=== PATIENT | male | born 1940 | race Caucasian/White ===

== ENCOUNTER 2016-09-17 20:13 | Emergency (ER) | payer MEDICARE ==
[~2016-09-17] VITALS: Ht 176.5 cm; Wt 80.0 kg
[~2016-09-17 20:13] MED LIST: CLOP75; ECOT81TA2; ROSU10; VASO10TA8
[2016-09-17 20:14] VITALS: BP 151/78; PULSE 77; RESP 18; TEMP 100.1; O2SAT 95
[2016-09-17] MEDS ORDERED: ACETAMINOPHEN 325 MG TAB PO ONE (20:30)
--- NOTE | 2016-09-17 20:33 | PD ---
HPI Chief Complaint: Cold / Flu Symptoms Time Seen by Provider: 20:20 Travel History International Travel<30 days: No Contact w/Intl Traveler<30days: No Traveled to known affect area: No History of Present Illness HPI 75-year-old male complains of headache, chills, productive cough. Patient states that symptoms started 2 days ago. Patient states that the headache is mild aching headache diffuse over the head. Patient denies any visual change. Patient denies any neck pain. Patient denies earache sore throat. Patient states the cough is persistent and nonproductive. Patient denies any chest pain or shortness of breath. Patient denies abdominal pain. Patient denies any nausea vomiting diarrhea. Patient took Tylenol this morning. PFSH Past Medical History Arthritis: No Asthma: No Autoimmune Disease: No Blood Disorders: No Heart Rhythm Problems: No Cancer: No Cardiovascular Problems: Yes (3 stents ) High Cholesterol: No Chemotherapy: No Chest Pain: No Congestive Heart Failure: No COPD: No Cerebrovascular Accident: No Diabetes: Yes (Type 2) Endocrine: No Gastrointestinal Disorders: Yes (ABDOMINAL PAIN ASSOCIATED W/ LOTS OF GAS ( FLATUS).) GERD: No Glaucoma: No Genitourinary: No Headaches: No Hepatitis: No Hiatal Hernia: No Hypertension: Yes Immune Disorder: No Kidney Stones: No Musculoskeletal: Yes Neurologic: No Psychiatric: No Respiratory: No Myocardial Infarction: No Radiation Therapy: No Renal Failure: No Seizures: No Sickle Cell Disease: No Sleep Apnea: No Thyroid Disease: No Ulcer: Yes Past Surgical History Abdominal Surgery: No AICD: No Cardiac Surgery: Yes (CARDIAC CATHERIZATIONS IN 2000) Ear Surgery: No Endocrine Surgery: No Eye Surgery: No Genitourinary Surgery: No Gynecologic Surgery: No Joint Replacement: No Oral Surgery: No Pacemaker: No Thoracic Surgery: No Other Surgery: Yes Social History Alcohol Use: Yes (WINE, VODKA 2XWK) Tobacco Use: No Substance Use: No Allergies-Medications (Allergen,Severity, Reaction): Coded Allergies: No Known Allergies (Verified , 09/17/16) Reported Meds & Prescriptions Reported Meds & Active Scripts Active Reported Metformin ER (Metformin HCl) 500 Mg Tab 500 Mg PO HS Zetia (Ezetimibe) 10 Mg Tab 10 Mg PO DAILY Effient (Prasugrel) 10 Mg Tab 10 Mg PO DAILY Januvia (Sitagliptin Phosphate) 50 Mg Tab 50 Mg PO DAILY Prilosec (Omeprazole) 20 Mg Cap 20 Mg PO DAILY Crestor (Rosuvastatin Calcium) 40 Mg Tab 40 Mg PO DAILY Vasotec (Enalapril Maleate) 10 Mg Tab 10 Mg PO BID Aspirin 81 Mg Chew 81 Mg CHEW DAILY Review of Systems General / Constitutional: Positive: Chills, No: Fever Eyes: No: Visual changes HENT: Positive: Headaches Cardiovascular: No: Chest Pain or Discomfort Respiratory: Positive: Cough, No: Shortness of Breath Gastrointestinal: No: Abdominal Pain Genitourinary: No: Dysuria Musculoskeletal: No: Pain Skin: No Rash Neurologic: No: Weakness Psychiatric: No: Depression Endocrine: No: Polydipsia Hematologic/Lymphatic: No: Easy Bruising Physical Exam Narrative GENERAL: Well-nourished, well-developed patient. SKIN: Warm and dry. HEAD: Normocephalic. EYES: No scleral icterus. No injection or drainage. NECK: Supple, trachea midline. No JVD or lymphadenopathy. CARDIOVASCULAR: Regular rate and rhythm without murmurs, gallops, or rubs. RESPIRATORY: Breath sounds equal bilaterally. No accessory muscle use. GASTROINTESTINAL: Abdomen soft, non-tender, nondistended. MUSCULOSKELETAL: No cyanosis, or edema. BACK: Nontender without obvious deformity. No CVA tenderness. Neurologic exam: Patient's awake and alert oriented 3. No obvious focal neurological deficit. Data Data Last Documented VS Vital Signs Date Time Temp Pulse Resp B/P Pulse Ox O2 Delivery O2 Flow Rate FiO2 09/17/16 20:14 100.1 77 18 151/78 95 Orders Influenzae A/B Antigen (09/17/16 20:27) Chest, Single Ap (09/17/16 20:27) Acetaminophen (Tylenol) (09/17/16 20:30) Ceftriaxone Inj (Rocephin Inj) (09/17/16 21:00) Lidocaine Pf 1% Inj (Xylocaine-Mpf 1% In (09/17/16 21:00) Azithromycin (Zithromax) (09/17/16 21:00) MDM Medical Decision Making Medical Screen Exam Complete: Yes Emergency Medical Condition: Yes Interpretation(s) Last Impressions Chest X-Ray 09/17/162026 Signed Impressions: Service Date/Time: Saturday, September 17, 2016 20:29 - CONCLUSION: Abnormal opacity at the right lung base given the clinical history likely related to a pneumonia however followup radiographs are recommended after appropriate clinical therapy in 4-8 weeks to ensure complete resolution. Jhon Ackerman MD Differential Diagnosis Differential diagnosis including viral syndrome, bronchitis, pneumonia, sepsis. Narrative Course 75-year-old male with headache, cough, chills. Rocephin 1 g IM. Zithromax 500 mg by mouth. Diagnosis Primary Impression: Pneumonia Qualified Code: J18.1 - Pneumonia of right lower lobe due to infectious organism Patient Instructions: General Instructions Additional Instructions: Levaquin as directed. Tessalon Perles for cough. Tylenol for fever. Follow- up with personal physician. Return if no improvement in 2 days of worsening of condition. Med/Other Pt SpecificInfo: Prescription(s) given Scripts Benzonatate (Tessalon Perles)100 Mg [id number] Mg PO TID PRN (COUGH) #30 CAP Ref 0 Prov:Harpreet Robbins MD 09/17/16 Levofloxacin (Levaquin)750 Mg [id number] Mg PO DAILY #10 TAB Ref 0 Prov:Harpreet Robbins MD 09/17/16 Disposition: 01 DISCHARGE HOME Condition: Stable Harpreet Robbins MD Sep 17, 2016 20:33
--- NOTE | 2016-09-17 20:41 | RADHPO ---
EXAM DATE/TIME: 09/17/2016 20:29 [facility] COMPARISON: No previous studies available for comparison. INDICATIONS : Fever, cough, and congestion for three days. MEDICAL HISTORY : None. SURGICAL HISTORY : Cardiac stents. ENCOUNTER: Initial ACUITY: 3 days PAIN SCORE: 2/10 LOCATION: Bilateral chest FINDINGS: The left lung is clear. Heart size normal. There is abnormal opacity in right lung base and overlying the right hilum. It is partially nodular in appearance up to 2.8 cm. The right lower lobe mass versu s consolidation can have this appearance. Aortic calcification is noted. Osseous structures are intac t. CONCLUSION: Abnormal opacity at the right lung base given the clinical history likely related to a pneumonia jain laura followup radiographs are recommended after appropriate clinical therapy in 4-8 weeks to ensure co mplete resolution. Jhon Ackerman MD on September 17, 2016 at 20:38 Board Certified Radiologist. This report was verified electronically.
[2016-09-17] MEDS ORDERED: SITA50 PO (20:46)
[2016-09-17] MEDS ORDERED: METF-381 PO (20:46)
[2016-09-17] MEDS ORDERED: ZETI10TA5 PO (20:46)
[2016-09-17] MEDS ORDERED: PRIL20CA9 PO (20:46)
[2016-09-17] MEDS ORDERED: VASO10TA8 PO (20:46)
[2016-09-17] MEDS ORDERED: PRAS10TA PO (20:46)
[2016-09-17] MEDS ORDERED: ASPI81CH CHEW (20:46)
[2016-09-17] MEDS ORDERED: ROSU40 PO (20:46)
[2016-09-17] MEDS ORDERED: BENZ100 PO (20:52)
[2016-09-17] MEDS ORDERED: LEVA750T PO (20:52)
[2016-09-17] MEDS ORDERED: AZITHROMYCIN 250 MG TAB PO ONE (21:00)
[2016-09-17] MEDS ORDERED: LIDOCAINE HCL 1% PF 30 ML VIAL XX ONE (21:00)
[2016-09-17 21:45] VITALS: TEMP 100.7
== END 2016-09-17 21:48 | disposition home or self-care (01) ==
LOC: PHED 20:13
DX: J18.1 Lobar pneumonia, unspecified organism (principal); R51 Headache; E11.9 Type 2 diabetes mellitus without complications; I10 Essential (primary) hypertension; Z95.5 Presence of coronary angioplasty implant and graft
CPT/HCPCS: 71010; 87804; 96372; 99284; J0696

== ENCOUNTER 2016-12-02 00:12 | Emergency (ER) | payer MEDICARE ==
[~2016-12-02] VITALS: Ht 175.3 cm; Wt 79.9 kg
[~2016-12-02 00:12] MED LIST changes: +ASPI81CH CHEW; +BENZ100 PO; -CLOP75; -ECOT81TA2; +LEVA750T PO; +METF-381 PO; +PRAS10TA PO; +PRIL20CA9 PO; -ROSU10; +ROSU40 PO; +SITA50 PO; -VASO10TA8; +VASO10TA8 PO; +ZETI10TA5 PO
[2016-12-02 00:18] VITALS: BP 119/60; PULSE 59; RESP 16; TEMP 97.8; O2SAT 96
[2016-12-02 00:39] VITALS: BP 119/60; PULSE 59; RESP 16; TEMP 97.8; O2SAT 96
[2016-12-02] MEDS ORDERED: SULFAMETHOXAZOLE-TRIMETHOPRIM DS 800-160 MG TAB PO ONE (01:30)
[2016-12-02] MEDS ORDERED: TETANUS/DIPHTHERIA TOXOID ADULT 0.5 ML VIAL IM ONE (01:30)
[2016-12-02] MEDS ORDERED: ceFAZolin INJ 1,000 MG VIAL IM ONE (01:30)
[2016-12-02 01:44] LABS: AUTOMATED NEUTROPHIL # 3.4 TH/MM3 (1.8-7.7); BASOPHIL % 0.7 % (0.0-2.0); EOSINOPHIL # 0.1 TH/MM3 (0-0.4); EOSINOPHIL % 2.4 % (0.0-4.0); HEMATOCRIT 34.9 % (39.0-51.0); HEMO FLAGS DIFF FINAL; LYMPH % 22.7 % (9.0-44.0); LYMPHOCYTE # 1.2 TH/MM3 (1.0-4.8); MEAN CELL VOLUME 91.7 FL (80.0-100.0); MEAN CORPUSCULAR HEMOGLOBIN 29.9 PG (27.0-34.0); MEAN CORPUSCULAR HGB CONC 32.7 % (32.0-36.0); MONO % 12.3 % (0.0-8.0); NEUT % 61.9 % (16.0-70.0); PLATELET COUNT 223 TH/MM3 (150-450); RED BLOOD COUNT 3.81 MIL/MM3 (4.50-5.90); RED CELL DISTRIBUTION WIDTH 19.5 % (11.6-17.2); WHITE BLOOD COUNT 5.4 TH/MM3 (4.0-11.0)
[2016-12-02 01:54] LABS: BICARBONATE 25.3 MEQ/L (21.0-32.0)
[2016-12-02] MEDS ORDERED: DOXY100C PO (02:06)
--- NOTE | 2016-12-02 02:10 | PD ---
HPI Chief Complaint: Skin Problem Time Seen by Provider: 01:22 Travel History International Travel<30 days: No Contact w/Intl Traveler<30days: No Traveled to known affect area: No History of Present Illness HPI 76 year-old male presents to the emergency department for complaint of redness and bleeding from the left lower leg. Patient states he was wearing rubber boots the other day to do some cleaning outdoors and after prolonged wearing of the rubber boots had caused abrasions to the mid lower leg with some secondary bleeding. Patient states the area continues to bleed. Patient takes a blood thinning agent. Patient's had no ascending erythema or groin tenderness or lymphadenopathy. Patient has had no fever or chills. Patient states she has noted some redness to the area as well and some increased warmth of 5 decided to come to the emergency room for evaluation. Patient rates his discomfort is 0 /10 in intensity. Patient is diabetic and reports that his blood sugars been fairly well-controlled.Tetanus status is not current. PFSH Past Medical History Narrative Medical CAD stents diabetes prostate cancer Hx Anticoagulant Therapy: Yes Arthritis: No Asthma: No Autoimmune Disease: No Blood Disorders: No Heart Rhythm Problems: No Cancer: Yes (PORSTATE) Cardiac Catheterization: Yes Cardiovascular Problems: Yes (3 stents ) High Cholesterol: No Chemotherapy: No Chest Pain: No Congestive Heart Failure: No COPD: No Cerebrovascular Accident: No Coronary Artery Disease: Yes Diabetes: Yes Patient Takes Glucophage: Yes Diminished Hearing: No Endocrine: No Gastrointestinal Disorders: Yes (ABDOMINAL PAIN ASSOCIATED W/ LOTS OF GAS ( FLATUS).) GERD: Yes Glaucoma: No Genitourinary: No Headaches: No Hepatitis: No Hiatal Hernia: No Hypertension: Yes Immune Disorder: No Kidney Stones: No Musculoskeletal: Yes Neurologic: No Psychiatric: No Respiratory: No Myocardial Infarction: No Radiation Therapy: No Renal Failure: No Seizures: No Sickle Cell Disease: No Sleep Apnea: No Thyroid Disease: No Ulcer: Yes Influenza Vaccination: Yes Past Surgical History Abdominal Surgery: Yes (SMALL INTESTINE RESECTION ) AICD: No Cardiac Surgery: Yes (CARDIAC CATHERIZATIONS IN 2000) Cholecystectomy: Yes Ear Surgery: No Endocrine Surgery: No Eye Surgery: No Genitourinary Surgery: Yes (2014 SEED IMPLANTATION FOR PROSTATE CANCER) Gynecologic Surgery: No Joint Replacement: No Neurologic Surgery: No Oral Surgery: No Pacemaker: No Thoracic Surgery: No Other Surgery: Yes Social History Alcohol Use: Yes (WINE, VODKA 2XWK) Tobacco Use: No Substance Use: No Allergies-Medications (Allergen,Severity, Reaction): Coded Allergies: No Known Allergies (Verified , 12/02/16) Reported Meds & Prescriptions Reported Meds & Active Scripts Active Doxycycline Hyclate 100 Mg Cap 100 Mg PO BID Reported Metformin ER (Metformin HCl) 500 Mg Tab 500 Mg PO HS Zetia (Ezetimibe) 10 Mg Tab 10 Mg PO DAILY Effient (Prasugrel) 10 Mg Tab 10 Mg PO DAILY Januvia (Sitagliptin Phosphate) 50 Mg Tab 50 Mg PO DAILY Prilosec (Omeprazole) 20 Mg Cap 20 Mg PO DAILY Crestor (Rosuvastatin Calcium) 40 Mg Tab 40 Mg PO DAILY Vasotec (Enalapril Maleate) 10 Mg Tab 10 Mg PO BID Aspirin 81 Mg Chew 81 Mg CHEW DAILY Review of Systems Except as stated in HPI: all other systems reviewed are Neg Physical Exam Narrative GENERAL: Well-developed well-nourished pleasant male in no acute distress no respiratory distress SKIN: Warm and dry. HEAD: Normocephalic. EYES: No scleral icterus. No injection or drainage. NECK: Supple, trachea midline. No JVD or lymphadenopathy. CARDIOVASCULAR: Regular rate and rhythm without murmurs, gallops, or rubs. RESPIRATORY: Breath sounds equal bilaterally. No accessory muscle use. GASTROINTESTINAL: Abdomen soft, non-tender, nondistended. MUSCULOSKELETAL: No cyanosis, left lower leg with erythema increased warmth superficial abrasion mid anterior glaser area as well as lateral posterior calf area with mild anterior edema; distally dorsalis pedis pulse 2+ to palpation proximally no ascending erythema or groin lymphadenopathy. Capillary refill is brisk and less than 2 seconds per digit. BACK: Nontender without obvious deformity. No CVA tenderness. Data Data Last Documented VS Vital Signs Date Time Temp Pulse Resp B/P Pulse Ox O2 Delivery O2 Flow Rate FiO2 12/02/16 02:40 62 18 97 12/02/16 02:39 121/66 Room Air 12/02/16 00:39 97.8 Orders Basic Metabolic Panel (Bmp) (12/02/16 01:22) Complete Blood Count With Diff (12/02/16 01:22) Wound Culture And Gram Stain (12/02/16 01:22) Iv Access Insert/Monitor (12/02/16 01:22) Cefazolin Inj (Ancef Inj) (12/02/16 01:30) Tetanus/Diphtheria Tox Adult (Tetanus/Di (12/02/16 01:30) Wound Care (12/02/16 01:22) Sulfamet-Trimeth Ds 800-160 Mg (Bactrim (12/02/16 01:30) Labs Laboratory Tests Test 12/02/16 01:35 White Blood Count 5.4 TH/MM3 Red Blood Count 3.81 MIL/MM3 Hemoglobin 11.4 GM/DL Hematocrit 34.9 % Mean Corpuscular Volume 91.7 FL Mean Corpuscular Hemoglobin 29.9 PG Mean Corpuscular Hemoglobin 32.7 % Concent Red Cell Distribution Width 19.5 % Platelet Count 223 TH/MM3 Mean Platelet Volume 8.0 FL Neutrophils (%) (Auto) 61.9 % Lymphocytes (%) (Auto) 22.7 % Monocytes (%) (Auto) 12.3 % Eosinophils (%) (Auto) 2.4 % Basophils (%) (Auto) 0.7 % Neutrophils # (Auto) 3.4 TH/MM3 Lymphocytes # (Auto) 1.2 TH/MM3 Monocytes # (Auto) 0.7 TH/MM3 Eosinophils # (Auto) 0.1 TH/MM3 Basophils # (Auto) 0.0 TH/MM3 CBC Comment DIFF FINAL Differential Comment Sodium Level 140 MEQ/L Potassium Level 4.0 MEQ/L Chloride Level 106 MEQ/L Carbon Dioxide Level 25.3 MEQ/L Anion Gap 9 MEQ/L Blood Urea Nitrogen 21 MG/DL Creatinine 1.20 MG/DL Estimat Glomerular Filtration 59 ML/MIN Rate Random Glucose 125 MG/DL Calcium Level 8.7 MG/DL [facility] Medical Decision Making Medical Screen Exam Complete: Yes Emergency Medical Condition: Yes Medical Record Reviewed: Yes Interpretation(s) CBC & BMP Diagram 12/02/16 01:35 Vital Signs Date Time Temp Pulse Resp B/P Pulse Ox O2 Delivery O2 Flow Rate FiO2 12/02/16 00:42 60 18 12/02/16 00:39 97.8 59 16 119/60 96 12/02/16 00:18 97.8 59 16 119/60 96 Differential Diagnosis Wound infection, cellulitis, contact dermatitis Narrative Course IV access obtained specimens questions and sent for resulting; one site cleansed and wound culture obtained; patient given first dose of IV and oral antibiotic Patient resting comfortably CBC is automated differential total white cell count normal range without left shift; mild renal insufficiency Patient is stable for outpatient management and follow-up with his primary care provider; patient's tetanus status is updated. Diagnosis Primary Impression: Cellulitis of left lower extremity without foot Additional Impression: Abrasion of left lower leg with infection Qualified Code: S80.812A - Abrasion of left lower leg with infection, initial encounter Referrals: Primary Care Physician 2 days Patient Instructions: General Instructions Additional Instructions: Complete course of antibiotic as prescribed Keep one site clean and dry Follow-up with primary care provider Take acetaminophen/Tylenol as needed for fever 100.4F or greater Return to the emergency for for fever pain bleeding or any concerns Elevate lower extremity Med/Other Pt SpecificInfo: Prescription(s) given Scripts Doxycycline Hyclate 100 Mg [id number] Mg PO BID #14 CAP Ref 0 Prov:Joanna Madera MD 12/02/16 Disposition: 01 DISCHARGE HOME Condition: Stable Joanna Madera MD December 02, 2016 02:10
[2016-12-02 02:39] VITALS: BP 121/66; PULSE 62; RESP 16; O2SAT 97
== END 2016-12-02 02:44 | disposition home or self-care (01) ==
LOC: PHED 00:12
DX: L03.116 Cellulitis of left lower limb (principal); S80.812A Abrasion, left lower leg, initial encounter; L08.9 Local infection of the skin and subcutaneous tissue, unspecified; E11.9 Type 2 diabetes mellitus without complications; I10 Essential (primary) hypertension; X58.XXXA Exposure to other specified factors, initial encounter; Y93.H9 Activity, other involving exterior property and land maintenance, building and construction; Z23 Encounter for immunization; Z79.01 Long term (current) use of anticoagulants; Z79.84 Long term (current) use of oral hypoglycemic drugs; Z86.79 Personal history of other diseases of the circulatory system; Z85.46 Personal history of malignant neoplasm of prostate; Z87.19 Personal history of other diseases of the digestive system; Z87.39 Personal history of other diseases of the musculoskeletal system and connective tissue
CPT/HCPCS: 80048; 85025; 87070; 90471; 90714; 96372; 99283; J0690